=== PATIENT | female | born 2000 | race Caucasian/White ===

== ENCOUNTER 2021-03-11 17:32 | Emergency (ER) | payer OTHER, SELFPAY ==
[2021-03-11 17:41] VITALS: BP 122/68; PULSE 90; RESP 12; TEMP 37; O2SAT 100
--- NOTE | 2021-03-11 17:44 | ED.FEMALEGU ---
HPI - Female Genitourinary General Chief complaint: Urogenital-Female Stated complaint: POS UTI Time Seen by Provider: 03/11/21 17:44 Source: patient and RN notes reviewed Mode of arrival: ambulatory Limitations: no limitations History of Present Illness HPI Narrative: 20-year-old female presents to the [facility] with complaints of burning with urination. Denies any other symptoms Denies abdominal pain. No back pain. No nausea vomiting or diarrhea. Symptoms started yesterday. Has a history of UTIs. States that she just finished her period yesterday. Denies chance of Related Data Home Medications Medication Instructions Recorded Confirmed lamotrigine [Lamictal] 200 mg PO BID 09/03/19 03/11/21 Zyrtec 10 mg PO DAILY 03/11/21 03/11/21 lamotrigine 50 mg PO USEASDIRECTD 03/11/21 03/11/21 norgestimate-ethinyl estradiol 1 tablet PO DAILY 03/11/21 03/11/21 [[id number]] rizatriptan 10 mg PO USEASDIRECTD 03/11/21 03/11/21 Allergies Allergy/AdvReac Type Severity Reaction Status Date / Time No Known Allergies Allergy Verified 03/11/21 17:41 Review of Systems Review of Systems: All systems reviewed & are unremarkable except as noted in HPI and below Constitutional: Constitutional: Reports no additional constitutional complaints, Denies chills and Denies fatigue Eyes: Eyes: Reports no additional eye complaints Cardiovascular: Cardiovascular: Reports no additional cardiovascular complaints and Denies chest pain Respiratory: Respiratory: Reports no additional respiratory complaints, Denies cough, Denies dyspnea and Denies wheezing Gastrointestinal: Gastrointestinal: Reports no additional gastrointestinal complaints, Denies abdominal pain, Denies nausea and Denies vomiting Genitourinary: Genitourinary: Reports as per HPI, Denies nocturia, Reports dysuria, Denies flank pain and Denies vaginal discharge Musculoskeletal: Musculoskeletal: Reports no additional musculoskeletal complaints and Denies back pain Integumentary/Breasts: Skin/Breast: Reports system reviewed and no additional complaints, except as docu Neurologic: Reports system reviewed and no additional complaints, except as documented Psychiatric: Psychiatric: Reports no additional psychiatric complaints Allergic/Immunologic: Allergic/Immunologic: Reports no additional allergic/immunologic complaints PMFSH Past Medical History Medical History (Updated 03/11/21 @ 18:04 by Dyan Calles) Brain tumor Seizure Surgical History Surgical History H/O craniotomy Social History Social History Smoking status: Never smoker Comments At the time of my signature, I reviewed and agree with the nursing past medical, surgical, social, and family history. There is no relevant family history pertinent to the patient complaint. Exam Const: General: healthy appearing, no acute distress and alert Nutritional Appearance: well nourished Orientation/consciousness: patient oriented x3 Limitations: no limitations HENMT: Head: normal to inspection Ears: external ears normal, TM's normal bilaterally and EAC's normal Eyes: Conjunctivae: conjunctivae normal Pupils: Equal, round and reactive pupils present Neck: Neck: normal visual inspection, no lymphadenopathy and no meningeal signs Chest: Chest palpation & inspection: normal inspection of the chest Resp: Effort & Inspection: normal respiratory effort and no use of accessory muscles Auscultation: clear to auscultation bilaterally, no crackles, no rales, no rhonchi and no wheezes Cardio: Rate: regular rate Rhythm: regular rhythm GI: GI Palp: Yes Soft to palpation, No Tenderness to palpation present (GI) and No Guarding due to palpation present (GI) : General: Yes no CVA tenderness Urinary Catheter: Urinary Catheter: patent and draining Back/Spine/Pelvis: Back: no CVA tenderness Skin: General s
== END 2021-03-11 18:15 | disposition home or self-care (01) ==
PROVIDERS: Emergency Provider Nurse Practitioner
DX: N30.01 Acute cystitis with hematuria (principal); G40.909 Epilepsy, unspecified, not intractable, without status epilepticus
CPT/HCPCS: 81003; 87077; 87086; 87088; 99213; G0463

== ENCOUNTER 2022-06-14 12:09 | Emergency (ER) | payer OTHER, SELFPAY ==
[2022-06-14] VITALS (32 sets, daily range): BP systolic 108–131; BP diastolic 57–74; PULSE 72–112; RESP 13–25; TEMP 36.2; O2SAT 97–100
--- NOTE | ~2022-06-14 | CT_ITS ---
EXAMINATION: CTA brain carotid DATE: 06/14/2022 14:20 INDICATION: Vertigo. TECHNIQUE: Computed tomographic angiography (CTA) of the head was performed without and with 100 mL O mnipaque-350 intravenous contrast. CTA of the neck was performed with intravenous contrast. Automated exposure control and iterative reconstruction technique were employed. The dose-length product was 1 574.95 mGy-cm. Maximum intensity projection and volume rendered 3D-reconstructions were created by latasha griffith technologist on a separate workstation. COMPARISON: None. FINDINGS: HEAD CTA: There is no intracranial hemorrhage or acute infarction. There is chronic encephalomalacia in left cerebellum. There is a 16 mm mass involving the left middle cerebellar peduncle and left cere bellar white matter that is isodense to vasquez matter. The ventricles are normal in size. There are alejandrina nges of left posterior craniotomy. The paranasal sinuses are clear. The mastoid air cells are normal. The orbits are normal. The vertebral arteries are codominant. There is no significant stenosis of ba silar artery or the posterior cerebral arteries. The posterior communicating arteries are normal. The re is no significant stenosis of the intracranial internal carotid arteries or anterior or middle cer ebral arteries. Anterior communicating artery is normal. There is no aneurysm. NECK CTA: There are no pathologically enlarged lymph nodes. There is no significant stenosis of the v ertebral arteries. There is no visible plaque in the proximal internal carotid arteries. There is 0% stenosis of the proximal right internal carotid artery relative to normal distal artery lumen diamete r (NASCET criteria). There is 0% stenosis of the proximal left internal carotid artery relative to no rmal distal artery lumen diameter. There is mild cervical spondylosis. IMPRESSION: 1. 16 mm mass involving the left middle cerebellar peduncle and left cerebellar white matter that is isodense to vasquez matter. This finding may represent treatment change or residual or recurrent neoplas m. Chronic encephalomalacia in the more peripheral left cerebellum. Comparison with outside imaging i s recommended. 2. No aneurysm or significant intracranial internal stenosis. 3. 0% stenosis of the proximal internal carotid arteries relative to normal distal artery lumen diame ters (NASCET criteria). Reviewed, dictated and finalized at location A. IMPRESSION: 1. 16 mm mass involving the left middle cerebellar peduncle and left cerebellar white matter that is isodense to vasquez matter. This finding may represent treat ment change or residual or recurrent neoplasm. Chronic encephalomalacia in the more peripheral left cerebellum. Comparison with outside imaging is recommended . 2. No aneurysm or significant intracranial internal stenosis. 3. 0% stenosis of the proximal internal carotid arteries relative to normal dis ca artery lumen diameters (NASCET criteria).
--- NOTE | ~2022-06-14 | XR_ITS ---
XR chest 1V DATE: 06/14/2022 14:19 INDICATION: Dizziness TECHNIQUE: AP chest COMPARISON: None FINDINGS: Normal heart size. No hilar or mediastinal enlargement. No pulmonary infiltrate or consolid ation, pleural effusion or pulmonary vascular congestion or pneumothorax. Included skeletal structure s are normal. IMPRESSION: Negative Reviewed, dictated and finalized at location B. IMPRESSION: Negative
--- NOTE | 2022-06-14 12:47 | ECG_ITS ---
Measurements Intervals [place] Rate: 79 P: 36 [place]: 159 QRS: 63 QRSD: 105 T: 40 QT: 408 QTc: 468 Interpretive Statements SINUS RHYTHM INCOMPLETE RIGHT BUNDLE BRANCH BLOCK BORDERLINE ECG NO PREVIOUS ECG AVAILABLE FOR COMPARISON Electronically Signed On 06-14-2022 21:23:14 CDT by Sonny Lyons D.O.
--- NOTE | 2022-06-14 12:51 | ED.GENADULT ---
HPI - General Adult General Chief complaint: Nausea/Vomiting/Diarrhea Stated complaint: n/v, altered mental status Time Seen by Provider: 06/14/22 12:23 History of Present Illness HPI narrative: Patient is a 22-year-old female who presents to the ER with reports of dizziness. Began this morning. She feels like things are spinning and she was very nauseated with movements. She reports this happens 2 or weekly but this is the most intense that its been. She was sweaty today. No fevers or chills or sweats. Patient has been having some blurred vision recently and was seen by an machine lacer and was told that her eye muscles were not necessarily working in coordination with each other and she needed to stop using her cell phone. She has decreased her screen time on her phone but continues to use a computer because she is in school. She has no new focal weakness or numbness in arm or leg. She is found no alleviating factors of her symptoms. Patient has history of epilepsy and does take her antiepileptics. She also has history of migraines for which she takes rizatriptan. She has no headache at this time. Patient has had no evidence of tongue biting according to the mother who evaluated her tongue this morning. 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 She gets regular MRIs through [facility]. The last MRI was in the last month and showed no recurrence of tumor. Related Data Home Medications Medication Instructions Recorded Confirmed lamotrigine 200 mg tablet 200 mg PO BID 09/03/19 03/11/21 (Lamictal) Zyrtec 10 mg PO DAILY 03/11/21 03/11/21 lamotrigine 50 mg disintegrating 50 mg PO USEASDIRECTD 03/11/21 03/11/21 tablet norgestimate 0.18 mg/0.215 mg/0.25 1 tablet PO DAILY 03/11/21 03/11/21 mg-ethinyl estradiol 25 mcg tablet ([id number]) rizatriptan 10 mg tablet 10 mg PO USEASDIRECTD 03/11/21 03/11/21 Allergies Allergy/AdvReac Type Severity Reaction Status Date / Time No Known Allergies Allergy Verified 03/11/21 17:41 Review of Systems Review of Systems: All systems reviewed & are unremarkable except as noted in HPI and below Constitutional: Constitutional: Denies chills and Denies fever(s) Eyes: Eyes: Reports change in vision and Denies photophobia ENT: Reports dizziness, Denies nasal congestion and Denies sore throat Cardiovascular: Cardiovascular: Denies chest pain and Denies radiating jaw, neck or arm pain Gastrointestinal: Gastrointestinal: Denies abdominal pain, Reports nausea and Reports vomiting Neurologic: Reports dizziness, Denies syncope, Denies headache(s), Denies focal weakness and Denies numbness PMFSH Past Medical History Medical History (Updated 06/14/22 @ 17:52 by Nolan Kaur MD) Brain tumor Seizure Surgical History Surgical History H/O craniotomy Social History Social History Smoking status: Never smoker Exam Narrative: GENERAL: Fatigued-appearing, well-nourished, and in no acute distress. HEAD: Normocephalic, atraumatic. EYES: PERRLA and horizontal nystagmus to the right and left. ENT: Mucous membranes moist. Tympanic membranes pale and dull with air bubbles behind the right TM. Ear canals free of cerumen. NECK: Supple. CHEST: Clear to auscultation. No respiratory distress. HEART: Regular rate and rhythm. Normal peripheral pulses. ABDOMEN: Soft, nontender, nondistended. EXTREMITIES: Normal range of motion. No edema. SKIN: Warm, dry, no rash. Course Course Emergency Course: Patient resting comfortably. Nausea improved with meclizine and Zofran as well as IV fluids. Dizziness improved as well. Patient still has some horizontal nystagmus. Discussed imaging results with Dr. Silva with neurosurgery at [facility]. She has directly reviewed the images and feels this represen
[2022-06-14 13:19] LABS: Basophils Percent Auto 0.4 % (0.2-1.2); Eosinophils Percent Auto 0.2 % (0-4.4); Hematocrit 40.4 % (37.0-47.0); Immature Granulocyte Absolute 0.03 K/mm3 (0.00-0.031); Immature Granulocyte Percent A 0.6 % (0-0.5); Lymphocytes Absolute Auto 1.26 K/mm3 (0.9-3.2); Lymphocytes Percent Auto 24.6 % (18.3-44.2); Mean Corpuscular HGB Conc 32.2 g/dl (32-36); Mean Corpuscular Hemoglobin 30.2 pg (26-34); Monocytes Absolute Auto 0.2 K/mm3 (0.1-0.6); Monocytes Percent Auto 4.1 % (2.6-8.5); Neutrophils Absolute Auto 3.6 K/mm3 (1.3-6.7); Neutrophils Percent Auto 70.1 % (45.5-73.1); Platelet Count Result 218 k/mm3 (150-375); Red Cell Distribution Width 13.1 % (11.5-14.5); White Blood Count 5.1 K/mm3 (4.5-10.0)
[2022-06-14 13:42] LABS: Alanine Aminotransferase 20 U/L (6-35); Albumin Level 4.3 g/dL (3.5-5.1); Alkaline Phosphatase 101 U/L (38-126); Anion Gap 13 mmol/L (8-16); Aspartate Amino Transferase 26 U/L (14-36); Bilirubin,Total 0.3 mg/dL (0.2-1.3); Blood Urea Nitrogen 11 mg/dL (7-17); Calcium 8.6 mg/dL (8.4-10.2); Carbon Dioxide 21 mmol/L (22-30); Chloride 105 mmol/L (98-107); Estimated Glomerular Filt Rate > 60; Glucose 150 mg/dL (65-110); Potassium 3.3 mmol/L (3.4-5.0); Sodium 139 mmol/L (137-145)
[2022-06-14] MEDS: MECLIZINE HCL 25 MG TABLET PO (13:50)
[2022-06-14] MEDS: SODIUM CHLORIDE 0.9% IV 1,000 ML 999 ML IV CONT (13:51)
[2022-06-14] MEDS: ONDANSETRON INJ 4 MG/2 ML VIAL IV PUSH (13:51)
[2022-06-14 14:14] LABS: Appearance Urine Clear (Clear); Bilirubin Urine Negative (Negative); Blood Urine Negative (Negative); Color Urine Yellow (Yellow); Glucose Urine UA Negative (Negative); Ketones Urine 2+ mg/dL (Negative); Leukocyte Esterase Ur Negative LEU/UL (Negative); Nitrate Urine Negative (Negative); Protein Urine Negative (Negative); Specific Grav Ur 1.025 (1.001-1.035); Urobilinogen Urine 0.2 mg/dL (<2.0); pH Urine 6.5 (5.0-9.0)
[2022-06-14 14:21] LABS: Mucus Urine Rare /lpf; RBC Urine 0-2 /hpf (0-2); WBC Urine 0-3 /hpf
[2022-06-14 14:27] LABS: Add Urine Microscopic? YES
[2022-06-14 14:38] LABS: Amphetamine Screen Urine Negative (Negative); Barbiturate Screen Urine Negative (Negative); Benzodiazepines Screen Urine Negative (Negative); Cannabinoid Screen Urine Negative (Negative); Cocaine Screen Urine Negative (Negative); Methadone Screen Urine Negative (Negative); Opiate Screen Urine Negative (Negative); Phencyclidine Screen Urine Negative (Negative)
[2022-06-14 14:39] LABS: INR 1.1; Partial Thromboplastin Time 22.7 SECONDS (22.3-36.8); Prothrombin Time 13.4 Seconds (11.1-14.7)
== END 2022-06-14 18:11 | disposition home or self-care (01) ==
PROVIDERS: Emergency Provider Emergency Medicine
DX: R42 Dizziness and giddiness (principal); I45.10 Unspecified right bundle-branch block
CPT/HCPCS: 36415; 51701; 70496; 70498; 71045; 80053; 80307; 81001; 85025; 85610; 85730; 93005; 96361; 96374; 99284; A9270; J2405; J7030; Q9967